=== PATIENT | female | born 1995 | race Two or more races ===

== ENCOUNTER 2016-12-06 23:30 | Inpatient (IN) | payer MEDICAID, OTHER ==
[~2016-12-06] VITALS: Ht 165.1 cm; Wt 62.0 kg
[~2016-12-06 23:30] MED LIST: CEPH-460 PO
[2016-12-07] VITALS (41 sets, daily range): BP systolic 87–134; BP diastolic 46–76; PULSE 74–108; RESP 16–20; TEMP 97.5–98.7
[2016-12-07] MEDS ORDERED: LACTATED RINGER'S 1000 ML INJ 1,000 ML IV PRN (00:41)
[2016-12-07] MEDS ORDERED: LACTATED RINGER'S 1000 ML INJ 1,000 ML IV SCH (00:41)
[2016-12-07] MEDS ORDERED: SODIUM CHLORID 0.9% 500 ML INJ 500 ML IV PRN (00:45)
[2016-12-07] MEDS ORDERED: LIDOCAINE HCL 1% 50 ML VIAL INFIL PRN (00:45)
[2016-12-07] MEDS ORDERED: OXYTOCIN 30 UNITS-500ML PREMIX 500 ML IV ONE (00:45)
[2016-12-07] MEDS ORDERED: ONDANSETRON HCL 4 MG/2 ML VIAL IV PUSH PRN (00:45)
[2016-12-07] MEDS ORDERED: LIDOCAINE HCL 1% 50 ML VIAL I-DERMAL PRN (00:45)
[2016-12-07] MEDS ORDERED: MINERAL OIL 10 ML VIAL TOPICAL PRN (00:45)
[2016-12-07] MEDS ORDERED: CITRIC ACID-SODIUM CITRATE LIQ 30 ML UDC PO SCH (00:45)
--- NOTE | 2016-12-07 00:51 | PD ---
HPI Chief Complaint ctx, spotting Date Seen: Dec 07, 2016 Time Seen: 00:46 Travel History International Travel<30 Days: No Contact w/Intl Traveler<30Days: No Known Affected Area: No History of Present Illness HPI Pt is a 21y/o @ 38.3wks. She has PNC at [facility]. She presents with c/o ctx since 9am (on/off) but increasing this evening to q5m. She also reports brown/red spotting. 2wks ago she was checked in clinic and was 1cm. She is taking keflex for a recent UTI. Weeks Gestation: 38 Para: 1 : 2 Last Menstrual Period: Dec 07, 2016 History Obstetric History Obstetric History 1. @ term 2. current Past Surgical History Surgical History: No Previous Surgery Family History Family History: Negative Social History Alcohol Use: No Tobacco Use: No Substance Abuse: No Allergies-Medications (Allergen,Severity, Reaction): Coded Allergies: No Known Allergies (Unverified , 12/07/16) Home Meds Active Scripts Cephalexin (Keflex) 500 Mg Cap, 500 MG PO Q12H for Infection, #14 CAP 0 Refills Prov:Kati Way [facility] 12/01/16 Vit W/ Fe Polysacch C (Vitafol Ultra 29-0.6-0.4-200 mg) 1 Cap Cap Prov:Lennie Hardy CNM [facility] 09/21/16 Review of Systems Except as stated in HPI: all other systems reviewed are Neg Physical Exam Narrative GENERAL: Well-nourished, well-developed patient. SKIN: Warm and dry. HEAD: Normocephalic and atraumatic. EYES: No scleral icterus. No injection or drainage. ABDOMEN/GI: Abdomen soft, non-tender, gravid EXTREMITIES: No cyanosis NEUROLOGICAL: Awake and alert. Motor and sensory grossly within normal limits. FHTs: 125, no accels, no decels, moderate variability TOCO: ctx q 2-5m CVX: 3.5-4/80/-3 Data Data Vital Signs Reviewed: Yes Orders Orders Ob (2e) Additional Admit Info (12/07/16 00:36) Vital Signs (Adult) .ON ADMISSION (12/07/16 00:41) ^ Labor Status (12/07/16 00:41) ^ Non Stress Test (12/07/16 00:41) Admit To Inpatient (12/07/16 ) Vital Signs (Adult) .Per protocol (12/07/16 00:41) Heart (12/07/16 00:41) Amnioinfusion (12/07/16 00:41) Urinary Catheter Management .ONCE (12/07/16 00:41) Diet Liquid (12/07/16 Breakfast) Lactated Ringer's 1000 Ml Inj (Lr 1000 M (12/07/16 00:41) Lactated Ringer's 1000 Ml Inj (Lr 1000 M (12/07/16 00:41) Sodium Chlorid 0.9% 500 Ml Inj (Ns 500 M (12/07/16 00:45) Sodium Chlor 0.9% 1000 Ml Inj (Ns 1000 M (12/07/16 01:01) Lidocaine 1% Inj (50 Ml) (Xylocaine 1% I (12/07/16 00:45) Citric Acid-Sodium Citrate Liq (Bicitra (12/07/16 00:45) Ondansetron Inj (Zofran Inj) (12/07/16 00:45) Fentanyl Inj (Fentanyl Inj) (12/07/16 00:45) Fentanyl Inj (Fentanyl Inj) (12/07/16 00:45) Complete Blood Count With Diff (12/07/16 00:41) Abo/Rh Blood Type (12/07/16 00:41) Urinalysis - C+S If Indicated (12/07/16 00:41) Drug Screen, Random Urine (12/07/16 00:41) Resp Oxygen Non Rebreathe Mask (12/07/16 ) ^ Epidural / Intrathecal Infus (12/07/16 00:41) Oxytocin 30 Units-500ml Premix (Pitocin (12/07/16 00:45) Lidocaine 1% Inj (50 Ml) (Xylocaine 1% I (12/07/16 00:45) Light Mineral Oil (Muri-Lube Oil) (12/07/16 00:45) Inpatient Certification (12/07/16 ) Group B Strep: Negative MDM Plan @ 38.3wks in latent labor. -- admit to L&D -- no augmentation at this time -- 3.5/4/80/-3 -- GBS neg Diagnosis Diagnosis: Primary Impression: 38 weeks gestation of Additional Impression: Uterine contractions during Condition: Halina Rivera MD Dec 07, 2016 00:51
[2016-12-07] MEDS ORDERED: SODIUM CHLOR 0.9% 1000 ML INJ 1,000 ML IV PRN (01:01)
--- NOTE | 2016-12-07 01:03 | HHI.PR ---
[employer] Note Note HPI HPI Chief Complaint ctx, spotting Date Seen: Dec 07, 2016 Time Seen: 00:46 Travel History International Travel<30 Days: No Contact w/Intl Traveler<30Days: No Known Affected Area: No History of Present Illness HPI Pt is a 21y/o @ 38.3wks. She has PNC at [facility]. She presents with c/o ctx since 9am (on/off) but increasing this evening to q5m. She also reports brown/red spotting. 2wks ago she was checked in clinic and was 1cm. She is taking keflex for a recent UTI. Weeks Gestation: 38 Para: 1 : 2 Last Menstrual Period: Dec 07, 2016 History (Limited) History Obstetric History Obstetric History 1. @ term 2. current Past Surgical History Surgical History: No Previous Surgery Family History Family History: Negative Social History Alcohol Use: No Tobacco Use: No Substance Abuse: No Allergies-Medications Allergies-Medications (Allergen,Severity, Reaction): Coded Allergies: No Known Allergies (Unverified , 12/07/16) Home Meds Active Scripts Cephalexin (Keflex) 500 Mg Cap, 500 MG PO Q12H for Infection, #14 CAP 0 Refills Prov:Kati WayP 12/01/16 Vit W/ Fe Polysacch C (Vitafol Ultra 29-0.6-0.4-200 mg) 1 Cap Cap Prov:Lennie Hardy CNM [facility] 09/21/16 ROS Review of Systems Except as stated in HPI: all other systems reviewed are Neg Physical Exam Physical Exam Narrative GENERAL: Well-nourished, well-developed patient. SKIN: Warm and dry. HEAD: Normocephalic and atraumatic. EYES: No scleral icterus. No injection or drainage. ABDOMEN/GI: Abdomen soft, non-tender, gravid EXTREMITIES: No cyanosis NEUROLOGICAL: Awake and alert. Motor and sensory grossly within normal limits. FHTs: 125, no accels, no decels, moderate variability TOCO: ctx q 2-5m CVX: 3.5-4/80/-3 Data Data Data Vital Signs Reviewed: Yes Orders Orders Ob (2e) Additional Admit Info (12/07/16 00:36) Vital Signs (Adult) .ON ADMISSION (12/07/16 00:41) ^ Labor Status (12/07/16 00:41) ^ Non Stress Test (12/07/16 00:41) Admit To Inpatient (12/07/16 ) Vital Signs (Adult) .Per protocol (12/07/16 00:41) Heart (12/07/16 00:41) Amnioinfusion (12/07/16 00:41) Urinary Catheter Management .ONCE (12/07/16 00:41) Diet Liquid (12/07/16 Breakfast) Lactated Ringer's 1000 Ml Inj (Lr 1000 M (12/07/16 00:41) Lactated Ringer's 1000 Ml Inj (Lr 1000 M (12/07/16 00:41) Sodium Chlorid 0.9% 500 Ml Inj (Ns 500 M (12/07/16 00:45) Sodium Chlor 0.9% 1000 Ml Inj (Ns 1000 M (12/07/16 01:01) Lidocaine 1% Inj (50 Ml) (Xylocaine 1% I (12/07/16 00:45) Citric Acid-Sodium Citrate Liq (Bicitra (12/07/16 00:45) Ondansetron Inj (Zofran Inj) (12/07/16 00:45) Fentanyl Inj (Fentanyl Inj) (12/07/16 00:45) Fentanyl Inj (Fentanyl Inj) (12/07/16 00:45) Complete Blood Count With Diff (12/07/16 00:41) Abo/Rh Blood Type (12/07/16 00:41) Urinalysis - C+S If Indicated (12/07/16 00:41) Drug Screen, Random Urine (12/07/16 00:41) Resp Oxygen Non Rebreathe Mask (12/07/16 ) ^ Epidural / Intrathecal Infus (12/07/16 00:41) Oxytocin 30 Units-500ml Premix (Pitocin (12/07/16 00:45) Lidocaine 1% Inj (50 Ml) (Xylocaine 1% I (12/07/16 00:45) Light Mineral Oil (Muri-Lube Oil) (12/07/16 00:45) Inpatient Certification (12/07/16 ) Group B Strep: Negative MDM MDM Plan @ 38.3wks in latent labor. -- admit to L&D -- no augmentation at this time -- 3.5/4/80/-3 -- GBS neg Diagnosis Diagnosis: Primary Impression: 38 weeks gestation of Additional Impression: Uterine contractions during Condition: Good Halina Osborne MD Dec 07, 2016 00:51 Halina Osborne MD Dec 07, 2016 01:03
[2016-12-07 01:18] LABS: BACTERIA, URINE RARE /hpf; BLOOD, URINE NEG (NEG); GLUCOSE,URINE NEG (NEG); KETONE, URINE NEG (NEG); NITRITE,URINE NEG (NEG); PH, URINE 6.5 (5.0-8.5); SQUAMOUS EPITHELIAL CELL URINE <1 /hpf (0-5); URINE COLOR COLORLESS (YELLW/STRAW)
[2016-12-07 01:23] LABS: COMMENT (UR) CULT NOT INDICATED; CULTURE IF INDICATED CULT NOT INDICATED
[2016-12-07 01:33] LABS: AUTOMATED NEUTROPHIL # 3.9 TH/MM3 (1.8-7.7); BASOPHIL % 0.5 % (0.0-2.0); EOSINOPHIL % 0.5 % (0.0-4.0); HEMATOCRIT 36.2 % (35.0-46.0); HEMO FLAGS DIFF FINAL; LYMPH % 24.9 % (9.0-44.0); LYMPHOCYTE # 1.5 TH/MM3 (1.0-4.8); MEAN CELL VOLUME 96.3 FL (80.0-100.0); MEAN CORPUSCULAR HEMOGLOBIN 33.7 PG (27.0-34.0); MONO % 10.1 % (0.0-8.0); PLATELET COUNT 114 TH/MM3 (150-450); RED BLOOD COUNT 3.76 MIL/MM3 (4.00-5.30); RED CELL DISTRIBUTION WIDTH 14.4 % (11.6-17.2); WHITE BLOOD COUNT 6.1 TH/MM3 (4.0-11.0)
[2016-12-07] MEDS ORDERED: fentaNYL 2MCG-BUPIV 0.125% INJ 100 ML ONE (03:19)
[2016-12-07] MEDS ORDERED: ePHEDrine/NS 25 MG/5 ML SYR ONE (03:19)
[2016-12-07] MEDS ORDERED: fentaNYL 2MCG-BUPIV 0.125% 100 ML EPIDURAL SCH (03:30)
[2016-12-07] MEDS ORDERED: NO SYSTEM NARCOTICS PRN (03:30)
[2016-12-07] MEDS ORDERED: DO NOT ADMINISTER ANTICOAGULANTS PRN (03:30)
[2016-12-07] MEDS ORDERED: ePHEDrine/NS 25 MG/5 ML SYR IV PUSH PRN (04:15)
[2016-12-07] MEDS ORDERED: BENZOCAINE 20% TOPICAL SPRAY 60 ML CAN TOPICAL PRN (08:15)
[2016-12-07] MEDS ORDERED: DOCUSATE SODIUM 50 MG/SENNA 8.6 MG TAB PO PRN (08:15)
[2016-12-07] MEDS ORDERED: IBUPROFEN 600 MG TAB PO PRN (08:15)
[2016-12-07] MEDS ORDERED: SODIUM CHLORIDE 0.9% FLUSH 10 ML FLUSH IV FLUSH PRN (08:15)
[2016-12-07] MEDS ORDERED: ALUMINUM/MAGNESIUM/SIMETH 30 ML CUP PO PRN (08:15)
[2016-12-07] MEDS ORDERED: ZOLPIDEM TARTRATE 5 MG TAB PO PRN (08:15)
[2016-12-07] MEDS ORDERED: WITCH HAZEL 50%/GLYCERIN 12.5% 40 PAD JAR TOPICAL PRN (08:15)
[2016-12-07] MEDS ORDERED: ONDANSETRON ODT 4 MG TAB PO PRN (08:15)
[2016-12-07] MEDS ORDERED: ACETAMINOPHEN 325 MG TAB PO PRN (08:15)
[2016-12-07] MEDS ORDERED: OXYTOCIN 30 UNITS-500ML PREMIX 500 ML IV SCH (08:15)
[2016-12-07] MEDS: SODIUM CHLORIDE 0.9% FLUSH 10 ML FLUSH IV FLUSH SCH (09:00)
[2016-12-07] MEDS ORDERED: DIPHTH/TETANUS/ACEL PERTUSSIS (BOOSTER) 0.5 ML VIAL/PFS IM ONE (16:00)
[2016-12-07] MEDS ORDERED: MEASLES, MUMPS, RUBELLA VACCINE 0.5 ML VIAL SQ ONE (16:00)
[2016-12-08 07:35] VITALS: BP 105/67; PULSE 70; RESP 16; TEMP 98.2
[2016-12-08] MEDS: SODIUM CHLORIDE 0.9% FLUSH 10 ML FLUSH IV FLUSH SCH ×2 (08:17→21:00)
--- NOTE | 2016-12-08 10:12 | PD.OB.DELI ---
Weeks gestation: 38 Gest age assessed date: Dec 07, 2016 Gest age assessed time: 00:00 Pt started active labor?: Yes Medical induction of labor?: No Artificial rupture of membrane: No Anesthesia: Epidural Episiotomy: None Vaginal Delivery: Normal, Spontaneous Presentation: Occiput anterior Nuchal Cord: None Delayed cord clamping (45 sec): Yes Delivery date: Dec 07, 2016 Delivery time: 08:01 One Minute : 8 Five Minute : 9 Weight: 3770g Placenta: Spontaneous delivery Diana Jimenez MD R1 Dec 08, 2016 10:12
--- NOTE | 2016-12-08 10:15 | HHI.OB ---
Subjective Remarks 21 year old female s/p at 38/3 wks gestation, PPD1. AFVSS. Patient reports she is feeling well. Bleeding is decreasing and pain is well- controlled. She is breast feeding and bonding well with baby. Ambulating without difficulties. She is tolerating a diet without nausea or vomiting. She has not had a bowel movement. She has passed gas. Denies chest pain, dysuria, shortness of breath, or calf pain. Objective Vitals/I&O Vital Signs Date Time Temp Pulse Resp B/P (MAP) Pulse Ox O2 Delivery O2 Flow Rate FiO2 12/08/16 07:35 98.2 70 16 105/67 (80) 12/07/16 19:55 104/64 (77) 12/07/16 19:55 98.4 88 16 12/07/16 12:20 97.5 84 16 96/59 (71) Objective Remarks GENERAL: Well-nourished, well-developed patient. CARDIOVASCULAR: Regular rate and rhythm without murmurs, gallops, or rubs. RESPIRATORY: Breath sounds equal bilaterally. No accessory muscle use. ABDOMEN/GI: Abdomen soft, non-tender. Fundus: Firm, non-tender at umbilicus. GENITOURINARY: Light to moderate bleeding. EXTREMITIES: No cyanosis or edema, non-tender, without signs of DVT. Medications and IVs Current Medications Medications (Trade) Dose Ordered Sig/Tyra Route Start Time Stop Time Status Last Admin (NS Flush) 2 ml BID IV FLUSH 12/07/16 09:00 (NS Flush) 2 ml UNSCH PRN IV FLUSH 12/07/16 08:15 (Tylenol) 650 mg Q4H PRN PO 12/07/16 08:15 (Motrin) 600 mg Q6H PRN PO 12/07/16 08:15 (Americaine 20% Top Spr) 1 spray Q4H PRN TOPICAL 12/07/16 08:15 (Tucks Pads) 1 applic QID PRN TOPICAL 12/07/16 08:15 (Lauren-Colace) 2 tab Q12H PRN PO 12/07/16 08:15 (Ambien) 5 mg HS PRN PO 12/07/16 08:15 (Mag-Al Plus Susp Liq) 15 ml Q8H PRN PO 12/07/16 08:15 (Zofran Odt) 4 mg Q6H PRN PO 12/07/16 08:15 Assessment/Plan Assessment and Plan 21 yo female s/p , PPD 1 - AFVSS - Continue routine care - Motrin PRN pain - Encourage OOB - Pelvic rest x 6 wks. - Contraception: Depo at 6 weeks, will discuss with OBGYN physician at follow- up - Anticipate D/C tomorrow Diana Jimenez MD R1 Dec 08, 2016 10:15
[2016-12-08 19:40] VITALS: BP 119/73; PULSE 95; RESP 20; TEMP 98.4
[2016-12-08 20:30] VITALS: BP 102/51; PULSE 18; RESP 7; TEMP 97.8
[2016-12-09 08:05] VITALS: BP 91/75; PULSE 75; RESP 16; TEMP 98.5
--- NOTE | 2016-12-09 08:25 | HHI.DCPOC ---
Discharge Care Plan Diagnosis: (1) Normal vaginal delivery Report Symptoms to Your Doctor -Temperature above 100.5 degrees -Redness, of incision or excessive or foul smelling drainage -Unusual pain or calf pain -Increased vaginal bleeding -Painful or difficulty urinating -Feelings of extreme sadness or anxiety after 2 weeks Goals to Promote Your Health * To prevent worsening of your condition and complications * To maintain your health at the optimal level Directions to Meet Your Goals Take your medications as prescribed Follow your dietary instruction Follow activity as directed Ensure plenty of rest for recovery Drink fluids for hydration Keep your appointments as scheduled Take your immunizations and boosters as scheduled If your symptoms worsen call your PCP, if no PCP go to Urgent Care Center or Emergency Room Smoking is Dangerous to Your Health. Avoid second hand smoke Call the 24-hour crisis hotline for domestic abuse at Diana Jimenez MD R1 Dec 09, 2016 08:25
[2016-12-09] MEDS ORDERED: IBUP-232 PO (08:26)
--- NOTE | 2016-12-09 08:29 | HHI.OB ---
Subjective Remarks 21 year old female s/p at 38/3 wks gestation, PPD2. AFVSS. Patient reports she is feeling well. Bleeding is decreasing and pain is well- controlled. She is breast feeding and bonding well with baby. Ambulating without difficulties. She is tolerating a diet without nausea or vomiting. She has had a bowel movement. She has passed gas. Denies chest pain, dysuria, shortness of breath, or calf pain. Objective Vitals/I&O Vital Signs Date Time Temp Pulse Resp B/P (MAP) Pulse Ox O2 Delivery O2 Flow Rate FiO2 12/08/16 20:30 18 7 102/51 (68) 12/08/16 20:30 97.8 12/08/16 19:40 119/73 (88) 12/08/16 19:40 98.4 95 20 Objective Remarks GENERAL: Well-nourished, well-developed patient. CARDIOVASCULAR: Regular rate and rhythm without murmurs, gallops, or rubs. RESPIRATORY: Breath sounds equal bilaterally. No accessory muscle use. ABDOMEN/GI: Abdomen soft, non-tender. Fundus: Firm, non-tender at umbilicus. GENITOURINARY: Light to moderate bleeding. EXTREMITIES: No cyanosis or edema, non-tender, without signs of DVT. Medications and IVs Current Medications Medications (Trade) Dose Ordered Sig/Tyra Route Start Time Stop Time Status Last Admin (NS Flush) 2 ml BID IV FLUSH 12/07/16 09:00 (NS Flush) 2 ml UNSCH PRN IV FLUSH 12/07/16 08:15 (Tylenol) 650 mg Q4H PRN PO 12/07/16 08:15 (Motrin) 600 mg Q6H PRN PO 12/07/16 08:15 (Americaine 20% Top Spr) 1 spray Q4H PRN TOPICAL 12/07/16 08:15 (Tucks Pads) 1 applic QID PRN TOPICAL 12/07/16 08:15 (Lauren-Colace) 2 tab Q12H PRN PO 12/07/16 08:15 (Ambien) 5 mg HS PRN PO 12/07/16 08:15 (Mag-Al Plus Susp Liq) 15 ml Q8H PRN PO 12/07/16 08:15 (Zofran Odt) 4 mg Q6H PRN PO 12/07/16 08:15 Assessment/Plan Assessment and Plan 21 yo female s/p , PPD 2 - AFVSS - Continue routine care - Motrin PRN pain - Encourage OOB - Pelvic rest x 6 wks. - Contraception: Depo at 6 weeks, will discuss with OBGYN physician at follow- up - Anticipate D/C today Diana Jimenez MD R1 Dec 09, 2016 08:29
== END 2016-12-09 14:00 | disposition home or self-care (01) | DRG 774 ==
LOC: HOBED 23:30 → H2EA 12-07 00:40 → H1EA 12-07 10:44
PROVIDERS: ADMIT Obstetrics & Gynecology; ATTEND Obstetrics & Gynecology
PROC: 00HU33Z Insertion of Infusion Device into Spinal Canal, Percutaneous Approach (ICD-10-PCS; 2016-12-07)
PROC: 3E0R3BZ Introduction of Anesthetic Agent into Spinal Canal, Percutaneous Approach (ICD-10-PCS; 2016-12-07)
PROC: 10E0XZZ Delivery of Products of Conception, External Approach (ICD-10-PCS; principal; 2016-12-08)
DX: O75.3 Other infection during labor (principal); Z37.0 Single live birth; Z3A.38 38 weeks gestation of pregnancy
CPT/HCPCS: 80307; 81001; 85025; 86900; 86901; 90715; J2590; J7120